=== PATIENT | female | born 1955 | race African-American/Black ===

== ENCOUNTER → 2016-10-16 | Outpatient (CLI) | payer OTHER ==
[~2016-10-16] MED LIST: FLEET REGU133 ML/BOT PR
== END ==
LOC: COP 21:00
DX: L72.8 Other follicular cysts of the skin and subcutaneous tissue (principal); L02.811 Cutaneous abscess of head [any part, except face]; Z48.01 Encounter for change or removal of surgical wound dressing

== ENCOUNTER 2016-10-17 10:07 | Outpatient (CLI) | payer OTHER ==
[2016-10-17 10:15] VITALS: BP 139/61
[2016-10-17 20:45] VITALS: BP 140/70
[2016-10-17 21:05] VITALS: BP 140/70
== END 2016-10-17 21:10 | disposition home or self-care (01) ==
LOC: COP 10:07
DX: L72.8 Other follicular cysts of the skin and subcutaneous tissue (principal); L02.811 Cutaneous abscess of head [any part, except face]
CPT/HCPCS: G0463

== ENCOUNTER → 2016-10-18 | Outpatient (CLI) | payer OTHER ==
[2016-10-18 11:05] VITALS: BP 137/67
== END ==
LOC: COP 09:00
DX: L72.8 Other follicular cysts of the skin and subcutaneous tissue (principal); L02.811 Cutaneous abscess of head [any part, except face]
CPT/HCPCS: G0463

== ENCOUNTER 2016-10-19 10:10 | Outpatient (CLI) | payer OTHER ==
[2016-10-19 10:15] VITALS: BP 152/69
[2016-10-19 21:30] VITALS: BP 161/87
== END 2016-10-19 22:09 | disposition home or self-care (01) ==
LOC: COP 10:10
DX: L72.8 Other follicular cysts of the skin and subcutaneous tissue (principal); L02.811 Cutaneous abscess of head [any part, except face]
CPT/HCPCS: G0463

== ENCOUNTER → 2016-10-20 20:45 | Outpatient (CLI) | payer OTHER ==
[2016-10-20 20:10] VITALS: BP 152/75
== END | disposition home or self-care (01) ==
LOC: COP 10:00
DX: L72.8 Other follicular cysts of the skin and subcutaneous tissue (principal); L02.811 Cutaneous abscess of head [any part, except face]
CPT/HCPCS: G0463

== ENCOUNTER → 2016-10-21 | Outpatient (CLI) | payer OTHER | LOC: COP 10:00 | DX: L72.8 Other follicular cysts of the skin and subcutaneous tissue (principal); L02.811 Cutaneous abscess of head [any part, except face]; Z48.01 Encounter for change or removal of surgical wound dressing | CPT/HCPCS: G0463 ==

== ENCOUNTER 2016-10-30 16:40 | Outpatient (CLI) | payer BC | END 2016-10-30 17:03 | disposition home or self-care (01) | LOC: COP 16:40 | DX: L72.8 Other follicular cysts of the skin and subcutaneous tissue (principal); L02.811 Cutaneous abscess of head [any part, except face]; Z48.01 Encounter for change or removal of surgical wound dressing | CPT/HCPCS: G0463 ==

== ENCOUNTER → 2016-10-31 | Outpatient (CLI) | payer BC ==
[2016-10-31 17:55] VITALS: BP 123/69
== END ==
LOC: COP 13:00
DX: L72.8 Other follicular cysts of the skin and subcutaneous tissue (principal); L02.811 Cutaneous abscess of head [any part, except face]; Z48.01 Encounter for change or removal of surgical wound dressing
CPT/HCPCS: G0463

== ENCOUNTER → 2016-11-01 | Outpatient (CLI) | payer BC ==
[2016-11-01 18:16] VITALS: BP 121/67
== END ==
LOC: COP 13:00
DX: L72.8 Other follicular cysts of the skin and subcutaneous tissue (principal); L02.811 Cutaneous abscess of head [any part, except face]; Z48.01 Encounter for change or removal of surgical wound dressing
CPT/HCPCS: G0463

== ENCOUNTER 2016-11-02 17:30 | Outpatient (CLI) | payer BC | END 2016-11-02 17:40 | disposition home or self-care (01) | LOC: COP 17:30 | DX: L72.8 Other follicular cysts of the skin and subcutaneous tissue (principal); L02.811 Cutaneous abscess of head [any part, except face]; Z48.01 Encounter for change or removal of surgical wound dressing | CPT/HCPCS: G0463 ==

== ENCOUNTER 2016-11-03 15:45 | Outpatient (CLI) | payer BC | END 2016-11-03 16:00 | disposition home or self-care (01) | LOC: COP 15:45 | DX: L72.8 Other follicular cysts of the skin and subcutaneous tissue (principal); L02.811 Cutaneous abscess of head [any part, except face]; Z48.01 Encounter for change or removal of surgical wound dressing | CPT/HCPCS: G0463 ==

== ENCOUNTER 2016-11-04 15:45 | Outpatient (CLI) | payer BC | END 2016-11-04 16:05 | disposition home or self-care (01) | LOC: COP 15:45 | DX: L72.8 Other follicular cysts of the skin and subcutaneous tissue (principal); L02.811 Cutaneous abscess of head [any part, except face]; Z48.01 Encounter for change or removal of surgical wound dressing | CPT/HCPCS: G0463 ==

== ENCOUNTER 2016-11-05 16:50 | Outpatient (CLI) | payer BC | END 2016-11-05 17:07 | disposition home or self-care (01) | LOC: COP 16:50 | DX: L72.8 Other follicular cysts of the skin and subcutaneous tissue (principal); L02.811 Cutaneous abscess of head [any part, except face]; Z48.01 Encounter for change or removal of surgical wound dressing | CPT/HCPCS: G0463 ==

== ENCOUNTER 2016-11-06 07:09 | Day surgery (SDC) | payer BC ==
[~2016-11-06] VITALS: Ht 154.9 cm; Wt 82.6 kg
--- NOTE | 2016-11-06 09:11 | Operative Note ---
Surgeon/Diagnoses Surgeon/Dining Service Inspector(s) Date of procedure: 11/06/16 Surgeon: MD Emi Carmona Diagnoses Pre-op diagnosis: Squamous proliferative lesion of LEFT scalp Post-op diagnosis Same Procedure Procedure Procedure: Excision of 2 cm LEFT scalp lesion Indications: MALIA MYERS is a 61 year-old Female with a history of scalp lesion that was felt to be likely inflamed cyst. She underwent incision and drainage and some atypical material was excised. Pathology confirmed squamous proliferative lesion of undetermined etiology. The decision was made for complete excision for better pathologic evaluation with the possibility of extensive excision if cancer confirmed. Findings: 2 cm lesion excised with dissection taken to fashion margin Procedure Description: After informed consent was obtained, the patient was taken to the operating room and placed in the supine position. General anesthesia was induced and her LEFT scalp was prepped and draped in a sterile fashion. After infiltration with local anesthetic an elliptical incision was made around the lesion. Lesion was excised and passed off for pathologic evaluation. The LEFT margin was marked with long suture in the anterior margin was marked with a short suture. Electrocautery was utilized to achieve hemostasis. Skin was reapproximated with 4-0 nylon in an interrupted fashion. A sterile dressing was applied and the patient was transferred to recovery in stable condition after her laryngeal mask airway was removed. EBL (ml): 25 Anesthesia: General Complications: No immediate Specimens: LEFT scalp lesion (2 cm) Disposition Disposition: Stable to recovery from where she will be discharged home. She will follow-up in 1-2 weeks. at 0910
--- NOTE | 2016-11-06 09:16 | Anesthesia Record ---
Anesthesia Record Part I Total IV fluids: 400 EBL (ml): 20 Urine Output: 0 Units of blood given: 0 B/P: 154/81 % SaO2: 95 Pulse: 84 Resps: 10 Temp: 97.2 Patient is: Awake, Stable Stable to PACU at: 0910 at 0916
--- NOTE | 2016-11-06 09:17 | Anesthesia Record ---
Anesthesia Record Part II Discharge time: 949 Destination: Same day surgery PACU nurse assessment review? Yes Patient is: Awake, Stable Anesthesia complications? No at 0916
[2016-11-06 17:20] VITALS: BP 130/71
== END 2016-11-06 11:00 | disposition home or self-care (01) ==
LOC: SDC 07:09
PROVIDERS: Surgery
PROC: 0HB0XZZ Excision of Scalp Skin, External Approach (ICD-10-PCS; principal; 2016-11-06 09:00)
DX: D48.5 Neoplasm of uncertain behavior of skin (principal)
CPT/HCPCS: J2405